=== PATIENT | male | born 1960 | race Caucasian/White ===

== ENCOUNTER 2020-07-06 13:20 | Emergency (ER) | payer BC ==
[~2020-07-06] VITALS: Ht 172.7 cm; Wt 61.2 kg
[~2020-07-06 13:20] MED LIST: HYDROCODON-ACE1 EAC7 PO; NOHOMEMEDICATIONS; NORCO 5-325 TA1 EACH PO
[2020-07-06 14:00] LABS: ABSOLUTE BASOPHILS 0.1 thou/uL (0.0-0.2); ABSOLUTE EOSINOPHILS 0.3 thou/uL (0.0-0.7); ABSOLUTE LYMPHOCYTES 2.6 thou/uL (0.8-5.3); ABSOLUTE MONOCYTES 0.6 thou/uL (0.0-1.2); BASOPHILS 1.1 %; EOSINOPHILS 3.8 %; HEMATOCRIT 45.1 % (42.0-52.0); HEMOGLOBIN 15.5 gm/dL (14.0-18.0); LYMPHOCYTES 34.4 %; MCH 31.6 pg (26.0-34.0); MCHC 34.4 g/dL (28.0-37.0); MONOCYTES 7.7 %; MPV 7.7 fl. (7.2-11.1); NUCLEATED RBCS 0 /100WBC; PLATELET COUNT* 242 thou/uL (150-400); RBC 4.91 mil/uL (4.50-6.00); RDW-CV 13.6 % (10.5-14.5); WBC 7.5 thou/uL (4.0-11.0)
[2020-07-06 14:17] LABS: CALCIUM 8.8 mg/dL (8.5-10.1); CREATININE 0.9 mg/dL (0.6-1.3); POTASSIUM 3.8 mmol/L (3.5-5.1)
[2020-07-06 14:26] LABS: ALBUMIN 3.4 g/dL (3.4-5.0); TOTAL BILIRUBIN 0.3 mg/dL (<0.1-1.0); TOTAL PROTEIN 7.3 g/dL (6.4-8.2)
[2020-07-06 14:40] LABS: APTT 25.7 Seconds (25.0-31.3); PROTIME 10.5 Seconds (9.20-11.50)
[2020-07-06] MEDS ORDERED: BREO ELLIPTA 11 EACH INH (15:14)
[2020-07-06] MEDS ORDERED: VENTOLIN HFA 1818 GM INH (15:14)
[2020-07-06] MEDS ORDERED: COMPRESSION TH1 EACH MISCELL (15:17)
[2020-07-06 15:58] LABS: INFLUENZA A ANTIGEN Negative (Negative); INFLUENZA B ANTIGEN Negative (Negative)
[2020-07-06 16:29] VITALS: BP 179/86
--- NOTE | 2020-07-07 11:29 | EKG ---
[place] [address] ELECTROCARDIOGRAM REPORT Name: TATIANA TESFAYE Room: [facility]#: [id number] Admission: 07/06/20 Attend Phys: Discharge: 07/06/20 Date of : 64 Date of Service: 07/06/20 1357 Report #: [id number] THIS REPORT FOR: //name// [facility] ED Test Date: 2020-07-06 Test Time: 13:57:42 Pat Name: TATIANA TESFAYE Department: Room: Gender: [facility] Supervisor: [facility] : 1960 Requested By: Shruthi Mattson Order Number: [id number] MD: Goldy Tsai Measurements Intervals [place] Rate: 84 P: 80 TN: 135 QRS: 248 QRSD: 100 T: 73 QT: 367 QTc: 434 Interpretive Statements Sinus rhythm Probable left atrial enlargement LAD, consider left anterior fascicular block Probable anterior infarct, old Compared to ECG 09/26/2009 16:19:41 no change Electronically Signed On 07-07-2020 11:29:36 RATING OFFICER by Goldy Tsai [email or web address] <ELECTRONICALLY SIGNED> By: Goldy Tsai MD, FACC 07/07/20 1129 1357 1357 Goldy Tsai MD, FAC /EPI
== END 2020-07-06 16:30 | disposition home or self-care (01) ==
LOC: M.ERS 13:20
PROVIDERS: Nurse Practitioner Family
DX: J86.9 Pyothorax without fistula (principal); R60.0 Localized edema; Z20.828 Contact with and (suspected) exposure to other viral communicable diseases; F17.210 Nicotine dependence, cigarettes, uncomplicated; Z90.89 Acquired absence of other organs